=== PATIENT | female | born 1940 | race Caucasian/White ===

== ENCOUNTER 2019-07-06 09:40 | Inpatient (IN) | payer MEDICARE ==
[2019-07-06] VITALS (19 sets, daily range): BP systolic 86–177; BP diastolic 39–76
[~2019-07-06] VITALS: Ht 162.6 cm; Wt 90.7 kg
[~2019-07-06 09:40] MED LIST: ATENOLOL 25 MG25 M1 PG; CARAFATE 1 GM TA1 GM PO; DIAZEPAM 2MG TAB2 MG PO; ESTRADIOL; HYDROCODONE-APA1 TA1 PO; MEDROLDOSEPACK PO; PERCOCET 5-3251 EACH PO; PROMETHAZINE/C118 ML PO; TRICOR; TRICOR145 MG PO; ZOFRAN ODT4 MG PO
[2019-07-06 10:33] LABS: BE 3.2 mmol/L (-2 to +3); PCO2 48.4 mmHg (35.0-45.0); pH 7.388 (7.340-7.450)
[2019-07-06 10:39] LABS: PO2 31.2 mmHg (75.0-100.0)
[2019-07-06 11:15] LABS: CALCIUM 9.2 mg/dL (8.5-10.1); POTASSIUM 5.5 mmol/L (3.5-5.1)
[2019-07-06 11:23] LABS: ALBUMIN 3.1 g/dL (3.4-5.0); TOTAL BILIRUBIN 0.5 mg/dL (<0.1-1.0); TOTAL PROTEIN 6.1 g/dL (6.4-8.2)
[2019-07-06 12:00] LABS: MCH 31.7 pg (26.0-34.0); MCHC 32.8 g/dL (28.0-37.0); MCV 96.7 fL (80.0-100.0); MPV 7.4 fl. (7.2-11.1); NUCLEATED RBCS 1 /100WBC; PLATELET COUNT* 321 thou/uL (150-400); RBC 1.84 mil/uL (4.20-5.00); RDW-CV 17.2 % (10.5-14.5); WBC 7.2 thou/uL (4.0-11.0)
[2019-07-06 12:06] LABS: HEMATOCRIT 17.8 % (37.0-47.0); HEMOGLOBIN 5.8 gm/dL (12.0-15.0)
[2019-07-06 12:13] LABS: INR 1.2; PROTIME 12.1 Seconds (9.20-11.50)
[2019-07-06 12:15] LABS: URINE BILIRUBIN NEGATIVE (Negative); URINE BLOOD NEGATIVE (Negative); URINE CLARITY CLEAR; URINE COLOR YELLOW; URINE GLUCOSE-RANDOM NEGATIVE (Negative); URINE KETONES NEGATIVE (Negative); URINE LEUKOCYTES-REFLEX TRACE (Negative); URINE NITRITE-REFLEX NEGATIVE (Negative); URINE PROTEIN NEGATIVE (Negative); URINE SPECIFIC GRAVITY 1.015 (1.005-1.030); URINE UROBILINOGEN 0.2 E.U./dl (0.2-1.0)
[2019-07-06 12:32] LABS: CASTS None Seen /LPF (None Seen); CRYSTALS None Seen /LPF (None Seen); MUCUS 0-3 Light strn/LPF (None Seen); SQUAMOUS 0-3 Few /LPF (0-3); URINE RBC 0-2 Rare /HPF (0-2); URINE WBC-REFLEX 6-15 Few /HPF (0-5)
[2019-07-06 12:49] LABS: ABSOLUTE LYMPHOCYTES 0.8 thou/uL (0.8-5.3); ABSOLUTE MONOCYTES 0.4 thou/uL (0.0-1.2); PLATELET ESTIMATE ADEQUATE; POLYCHROMASIA 1+
[2019-07-06 12:50] LABS: ANISOCYTOSIS 1+; HYPOCHROMASIA 1+; POIKILOCYTOSIS 1+
--- NOTE | 2019-07-06 16:23 | EKG ---
[place] [address] ELECTROCARDIOGRAM REPORT Name: ROLANDMG AKIL Room: [address] ADM IN M.R.#: [id number] Admission: 07/06/19 Attend Phys: Valentin Roberts, Discharge: Date of : 42 Date of Service: 07/06/19 1021 Report #: [id number] THIS REPORT FOR: //name// [facility] ED Test Date: 2019-07-06 Test Time: 10:21:32 Pat Name: MG WATKINS Department: Room: [facility] Gender: F Tree Killer: CASPER : 1940 Requested By: Les Maki Order Number: [id number] MD: Jose Cardoza Measurements Intervals [place] Rate: 93 P: WA: QRS: 45 QRSD: 84 T: 134 QT: 345 QTc: 430 Interpretive Statements sinus rhythm Nonspecific T abnormalities, lateral leads Compared to ECG 03/05/2008 02:56:53 T-wave abnormality now present Electronically Signed On 07-06-2019 16:21:59 CDT by Jose Cardoza [email or web address] <ELECTRONICALLY SIGNED> By: Jose Cardoza MD, FAC 07/06/19 1621 1021 1021 Jose Cardoza MD, [facility] /EPI
[2019-07-06 19:05] LABS: POTASSIUM 4.9 mmol/L (3.5-5.1)
[2019-07-06 20:41] LABS: HEMOGLOBIN 5.3 gm/dL (12.0-15.0)
[2019-07-06 20:42] LABS: HEMATOCRIT 16.2 % (37.0-47.0)
[2019-07-07] VITALS (191 sets, daily range): BP systolic 108–195; BP diastolic 33–150
[2019-07-07 01:17] LABS: HEMATOCRIT 20.1 % (37.0-47.0)
[2019-07-07 01:25] LABS: HEMOGLOBIN 6.6 gm/dL (12.0-15.0)
--- NOTE | 2019-07-07 04:16 | NUR ---
ASSUMED CARE AT 1910H, ON VENT AT 50% WITH SEDATION OF PROPOFOL AND PRECEDEX. SEDATION TRITARATED, PT WAS OBEYING COMMAND WITH EYE OPENING BUT THEN SHE'S FIGHTING THE VENT. SEDATION INCREASED. GI DOCTOR CALLED EARLY THE SHIFT AND INFORM ABOUT PT'S STATUS. HE WILL SEE PT HARRIS. 2ND BLOOD GIVEN BUT HGB STILL 6.6. TO RPT LAB THIS MORNING. WITH GREEN TO LIGHT BROWN NGT OUTPUT. NO STOOL IN MY SHIFT AND ABDOMEN NOT DISTENDED NOR CHANGE IN SIZE. WITH BRUISING AT THE MIDLINE SITE WITH SLIGHT FIRM SWELLING AND LINE REFRAINED FROM USING. WHEN PT WAS AWAKE, NO WEAKNESS NOTED ON ALL EXTRIMITIES. CONTINUE MONITORING AND TOWARD GOALS.
[2019-07-07 05:24] LABS: ABSOLUTE EOSINOPHILS 0.1 thou/uL (0.0-0.7); ABSOLUTE MONOCYTES 0.5 thou/uL (0.0-1.2); ABSOLUTE NEUTROPHILS 4.6 thou/uL (1.6-8.1); BASOPHILS 0.7 %; EOSINOPHILS 0.9 %; HEMATOCRIT 20.7 % (37.0-47.0); LYMPHOCYTES 16.2 %; MCH 31.5 pg (26.0-34.0); MCHC 32.6 g/dL (28.0-37.0); MCV 96.6 fL (80.0-100.0); MONOCYTES 8.4 %; MPV 7.2 fl. (7.2-11.1); NUCLEATED RBCS 1 /100WBC; PLATELET COUNT* 271 thou/uL (150-400); POLYS 73.8 %; RBC 2.14 mil/uL (4.20-5.00); RDW-CV 16.9 % (10.5-14.5); WBC 6.2 thou/uL (4.0-11.0)
[2019-07-07 05:26] LABS: HEMOGLOBIN 6.7 gm/dL (12.0-15.0)
[2019-07-07 05:52] LABS: CALCIUM 8.2 mg/dL (8.5-10.1); CREATININE 1.7 mg/dL (0.6-1.3); POTASSIUM 4.2 mmol/L (3.5-5.1)
[2019-07-07 10:48] LABS: BE 1.5 mmol/L (-2 to +3); PO2 83.7 mmHg (75.0-100.0); pH 7.341 (7.340-7.450)
[2019-07-07 10:50] LABS: PCO2 52.6 mmHg (35.0-45.0)
[2019-07-07 14:04] LABS: HEMATOCRIT 24.1 % (37.0-47.0)
--- NOTE | 2019-07-07 16:29 | NUR ---
ICU rounds: GI following. Pt have an EGD done in room. Repeat head CT, chest/abd xray to be completed. Central line in place. Has riley. Given 3 units of blood since yesterday. Intubated and sedated. CM spoke with Pt's via phone. Pt has been in [place] 2 times since the beginning of the year. Pt has gotten weaker over the past few weeks. Pt independent with ADLs. On 2.5L o2, provided through [employer]. Pt uses a walker for community distances. Pt is current with [facility] [phone]. No hx of SNF. Following for dc needs.
[2019-07-07 17:18] LABS: BE 2.1 mmol/L (-2 to +3); PCO2 41.4 mmHg (35.0-45.0); PO2 71.8 mmHg (75.0-100.0); pH 7.427 (7.340-7.450)
[2019-07-08] VITALS (73 sets, daily range): BP systolic 94–184; BP diastolic 34–89
[2019-07-08 04:52] LABS: ABSOLUTE EOSINOPHILS 0.1 thou/uL (0.0-0.7); ABSOLUTE LYMPHOCYTES 0.9 thou/uL (0.8-5.3); ABSOLUTE MONOCYTES 0.6 thou/uL (0.0-1.2); ABSOLUTE NEUTROPHILS 5.7 thou/uL (1.6-8.1); BASOPHILS 0.4 %; EOSINOPHILS 0.8 %; HEMATOCRIT 23.6 % (37.0-47.0); HEMOGLOBIN 7.9 gm/dL (12.0-15.0); LYMPHOCYTES 12.6 %; MCH 31.4 pg (26.0-34.0); MCHC 33.6 g/dL (28.0-37.0); MCV 93.5 fL (80.0-100.0); MONOCYTES 8.8 %; MPV 6.7 fl. (7.2-11.1); NUCLEATED RBCS 0 /100WBC; PLATELET COUNT* 272 thou/uL (150-400); POLYS 77.4 %; RBC 2.52 mil/uL (4.20-5.00); RDW-CV 17.2 % (10.5-14.5); WBC 7.3 thou/uL (4.0-11.0)
--- NOTE | 2019-07-08 05:03 | NUR ---
ASSUMED CARE AT 1900H, ON VENT AT 40% AND TOLERATED. STILL ON PROPOFOL AND PRECEDEX DRIP, TITATED. BOWEL PREP DONE STILL NOT YET CLEAR. STOOL BECAME MORE DARKER FROM DARK GREEN TO BLACK. PT SHOOK HIS HEAD WHEN ASKED IF HE HAD ABDOMINAL PAIN. HEMATOLOGY CAME LAST NIGNT AND ORDER MORNING LABS. CONTINUE MONITORING AND TOWARD GOALS.
[2019-07-08 05:09] LABS: CREATININE 1.4 mg/dL (0.6-1.3); POTASSIUM 3.7 mmol/L (3.5-5.1)
[2019-07-08 09:47] LABS: BE 0 mmol/L (-2 to +3); PCO2 42.5 mmHg (35.0-45.0); PO2 74.1 mmHg (75.0-100.0); pH 7.389 (7.340-7.450)
--- NOTE | 2019-07-08 11:58 | NUR ---
ICU rounds: Pt remains on vent. Colonoscopy being completed today.
[2019-07-08 15:29] LABS: BE 2.7 mmol/L (-2 to +3); PCO2 VENOUS 46.6 mmHg (41.0-51.0); PO2 VENOUS 35.5 mmHg (35.0-45.0)
--- NOTE | 2019-07-08 17:21 | CON ---
[address] [address] CONSULTATION Name: MG WATKINS Room: [address] IN M.R.#: [id number] Admission: 07/06/19 Attend Phys: Valentin Roberts MD Discharge: Date of : 42 Report #: [id number] THIS REPORT FOR: //name// cc: LM KIRK NP, RUTENDO NP ~ THIS REPORT FOR: //name// CC: Valentin Kirk DATE OF SERVICE: 07/07/2019 HEMATOLOGY CONSULT NOTE HISTORY OF PRESENT ILLNESS: The patient is being seen in consultation at the request of Dr. Juan for evaluation of anemia of unknown cause. History is taken exclusively from records in [facility], as the patient is intubated and sedated with propofol and no other family members are available. I reviewed briefly the patient's situation with the nurse in the ICU today. The patient was admitted to [facility] on 07/06/2019 after emergency squad brought her here from home where her had found her in the middle of the night unresponsive. She reportedly had been showing signs of progressive fatigue and shortness of breath with a dry cough for 1 week. She has underlying COPD and he reportedly gave her a breathing treatment at night, but later in the railway yard assistant hours he found her unresponsive and the squad was called, bring her in to [facility]. The patient has chronic hypoxia and uses 4 liters per minute nasal cannula. PAST MEDICAL HISTORY: She also has a past history of atrial fibrillation, hypertension, chronic kidney disease stage 3, dyslipidemia, and degenerative joint disease. According to records that are in [facility] [place], she also has a past history of esophageal reflux disease and small-bowel obstruction as well as borderline ascending aortic aneurysm. In the past, she had right upper lobectomy and she had colon cancer. It is also possible, past history of colon surgery because of bowel perforation that resulted in colostomy, then later reversal in 1972. She may also have had appendectomy in the distant past. SOCIAL HISTORY: At [place] is that she was a former smoker, but quit in 1998. She reportedly does not drink any alcohol now. REVIEW OF SYSTEMS: Unobtainable. PHYSICAL EXAMINATION: Reveals an obese elderly lady lying supine in the Intensive Care Unit bed 4. She is intubated, has an NG tube in place. [place] [address] CONSULTATION Name: MG WATKINS Room: [address] IN [facility]#: [id number] Admission: 07/06/19 Attend Phys: Valentin Roberts MD Discharge: Date of : 42 Report #: [id number] sedated with propofol and her eyes are closed. When her lids were gently retracted, they were mid position at 3 mm and there was no scleral icterus. She had no lymphadenopathy in any site in the cervical, clavicular, axillary or inguinal regions. There was no obvious thyromegaly. Her breasts are not examined. Cardiac rate and rhythm are normal without murmur or despite the past history of atrial fibrillation. Her abdomen is obese, but there is no guarding, rigidity, unusual distention, she had no detectable hepatosplenomegaly. Bulging flanks are caput medusae. Lower extremities reveal cool feet without cyanosis. She did not have sustained clonus on testing. There was minimal pitting edema and lower extremity purpura. MEDICAL DATA: From [facility] [place], the most recent CBC prior to admission here at [facility] yesterday was from 06/16/2019. Her hemoglobin then was 9.5 with hematocrit 31.9%, MCV 102.9, RDW 15.2 (11.9 and 15.1), with a white blood cell count of 5800, the differential was normal with 67% neutrophils, 22% lymphocytes, 6% monocytes, 1% eosinophils and no basophils. Platelet count is 251,000. From admission to [facility], hemoglobin was 5.8. I checked with the hematology lab and the peripheral blood smear was not made from that CBC tube. Her hemoglobin was 17.8, hematocrit 96.7, RDW 17.2, platelet count 321,000, and white blood cell count 7200. Three units of packed red blood cells have been given so far, two of them on the day of admission. On the day of admission, her creatinine was 2.0 with a BUN of 28, AST 189, lipase 110, total bilirubin 0.5, calcium 9.2, alkaline phosphatase 64, ALT 151, albumin 3.1, lactic acid 0.9, NT- proBNP 1936, and a ferritin today was within the normal range at 285. I personally reviewed the peripheral blood smear that was prepared from the 2nd CBC (day of admission, but after the first transfusion of blood. There was significant artifact in terms of the spreading. Red blood cells revealed moderate anisocytosis and mild poikilocytosis. There was no rouleaux formation or red cell agglutination. She had a very small population of spherocytes. She may have had biclonal population because of recent transfusions, but there was also a population of macrocytic cells and a very small percentage of definitely hypochromic cells. She had no tear drop cells, target cells or mature echinocytes or acanthocytes, I did not see any nucleated RBCs. White blood cells revealed minor population of hypogranular segmented neutrophils, but there were no other suggestions of dysplasia. She had no left shift and there were no toxic changes. I saw rare eosinophils, no basophils, only rare monocyte, and lymphocytes appeared to be normal. Review of the records in [facility] revealed that ever since 05/09/2019, she had had erythrocyte macrocytosis with MCVs initially 103.5 on 05/09/2019, reached to peak of 105 on 05/11/2019, then gradually decreased to minimum of 100.3 on 06/01/2019. Previous studies at [facility] do not show measurement of vitamin B12 or folic acid nor reticulocytes. [place] [address] CONSULTATION Name: RAUL WATKINSKELLEY BARNARD Room: [address] IN [facility]#: [id number] Admission: 07/06/19 Attend Phys: Valentin Roberts MD Discharge: Date of : 42 Report #: [id number] abdomen on 05/28/2019 revealed a normal liver and no splenomegaly. IMPRESSION AND PLAN: The patient has had striking drop in her hemoglobin over a short period of time. Her mentioned in history that the patient had been passing some bright red blood per rectum. She must have bled quite a bit and this may have been facilitated by Nneka. I note that Dr. Juan workup so far has been negative with regard to the EGD and colonoscopy is planned for tomorrow. There may or may not be a structural lesion that can be found. Angiodysplasia or arteriovenous malformations are possibilities. The patient could have dysplasia in addition, but it is difficult to be sure. There were no characteristic findings in my review of the peripheral blood smear. She has had an increase in the RDW on recent testing occasions, but no significant leukopenia or thrombocytopenia. I do not think a bone marrow examination is indicated, certainly not at the present time. She should be supported with red blood cell transfusions to stabilize her blood volume while she is undergoing investigations. Serum levels of the vitamins may be distorted some because of the plasma given with transfusions on admission, but this is minor consideration. Renal dysfunction also plays a role in her anemia, but that is not typically macrocytic. Therefore, she may have a multifactorial anemia. We would recommend transfusions to keep the hemoglobin approximately 9 since she has had heme-positive stools. <ELECTRONICALLY SIGNED> By: Les Yee MD 07/08/19 1721 [id number] [id number] Yee MD /nt
[2019-07-08 18:46] LABS: BE 1.2 mmol/L (-2 to +3); PCO2 VENOUS 47.4 mmHg (41.0-51.0); PO2 VENOUS 46.6 mmHg (35.0-45.0)
--- NOTE | 2019-07-08 20:07 | NUR ---
ASSUMED CARE OF PT AT 0700 PT HAD COLONSCOPY AT 1030 WENT WELL TOLERATED WELL NO ABNORMAL FINDINGS NOTED PT STARTED WEANING TRIAL AT 1445 TRIALED FOR 45MINS PLUS LAB RESULTS EXTUBATED BY RT WITH DR ESPARZA IN ROOM TOLERATED WELL VOICE HOARSE AND RASPY NC 5L SPOUSE NOTIFIED NG REMOVED WELL PT BECOME LABORED BREATHING AROUND 1800 BLOOD INCREASE 180/80S PRN MEDICATION GIVEN BIPAP ON CHANGE TO NONREBREATHER DEXAMETHASONE GIVEN NO IMPROVEMENT REINTUBATED PER DR ESPARZA ETOMIDATE 20MG GIVEN FOR INFORMATION PULLED FROM THE [facility] AWARE PRECEDEX AND PROPOFOL GTT STARTED AGAIN SPOUSE INFORMED
[2019-07-08 23:21] LABS: PCO2 VENOUS 36.2 mmHg (41.0-51.0); PO2 VENOUS 147.5 mmHg (35.0-45.0)
--- NOTE | 2019-07-08 23:35 | NUR ---
RECEIVED REPORT AND ASSUMED CARE OF PATIENT AT 1900. VSS. FULL ASSESSMENT COMPLETED CHARTED. BED LOCKED AND IN LOW POSITION.
[2019-07-09] VITALS (50 sets, daily range): BP systolic 104–189; BP diastolic 37–70
[2019-07-09 05:28] LABS: ABSOLUTE LYMPHOCYTES 0.5 thou/uL (0.8-5.3); ABSOLUTE MONOCYTES 0.2 thou/uL (0.0-1.2); ABSOLUTE NEUTROPHILS 3.8 thou/uL (1.6-8.1); BASOPHILS 0.1 %; HEMATOCRIT 24.5 % (37.0-47.0); HEMOGLOBIN 8.2 gm/dL (12.0-15.0); MCH 31.2 pg (26.0-34.0); MCHC 33.4 g/dL (28.0-37.0); MCV 93.5 fL (80.0-100.0); MONOCYTES 4.8 %; MPV 6.7 fl. (7.2-11.1); NUCLEATED RBCS 0 /100WBC; PLATELET COUNT* 275 thou/uL (150-400); POLYS 83.1 %; RBC 2.62 mil/uL (4.20-5.00); RDW-CV 17.6 % (10.5-14.5); WBC 4.5 thou/uL (4.0-11.0)
[2019-07-09 05:33] LABS: BE 2.2 mmol/L (-2 to +3); PCO2 VENOUS 42.5 mmHg (41.0-51.0); PO2 VENOUS 89.7 mmHg (35.0-45.0)
[2019-07-09 05:49] LABS: CALCIUM 8.1 mg/dL (8.5-10.1); CREATININE 1.4 mg/dL (0.6-1.3)
--- NOTE | 2019-07-09 14:22 | NUR ---
ICU rounds: Pt now Covid-19 pending. Reintubated last night, Pt was in respiratory distress. aware and in agreement with POC.
[2019-07-09 16:07] LABS: GLOBULIN TOTAL 2.5 g/dL (2.2-3.9); M-SPIKE Not Observed g/dL (Not Observed)
--- NOTE | 2019-07-09 18:00 | NUR ---
VENT SUPPORT CONTD, SETITNGS UNCHANGED. PT MILDLY SEDATED WITH PROPOFOL AND PRECEDEX, FOLLOWS COMMANDS. VSS. OG TUBE PLACED, PLACEMENT CONFIRMED WITH XRAY. TUBE FEEDING STARTED WITH JEVITY 1.5, TOLERATING AT 40 MLS/HR. Q2 TURNS FOR SKIN INTEGRITY. DARK BROWN URINE OUTPUT- 400 MLS. NO PLANS ON EXTUBATION TODAY. UPDATED OVER THE PHONE.
--- NOTE | 2019-07-09 21:59 | NUR ---
RECEIVED REPORT AND ASSUMED CARE OF THE PATIENT AT 1900. VSS. FULL ASSESSMENT COMPLETED CHARTED. BED LOCKED AND IN LOW POSITION. CALL LIGHT IN REACH.
[2019-07-10] VITALS (41 sets, daily range): BP systolic 97–192; BP diastolic 35–79
[2019-07-10 04:55] LABS: HEMOGLOBIN 7.7 gm/dL (12.0-15.0); MCH 30.1 pg (26.0-34.0); MCHC 32.1 g/dL (28.0-37.0); MCV 93.7 fL (80.0-100.0); MPV 7.2 fl. (7.2-11.1); NUCLEATED RBCS 0 /100WBC; PLATELET COUNT* 281 thou/uL (150-400); RBC 2.56 mil/uL (4.20-5.00); RDW-CV 16.6 % (10.5-14.5)
[2019-07-10 05:21] LABS: ALBUMIN 2.3 g/dL (3.4-5.0); CALCIUM 7.9 mg/dL (8.5-10.1); CREATININE 1.3 mg/dL (0.6-1.3); POTASSIUM 3.4 mmol/L (3.5-5.1); TOTAL BILIRUBIN 0.4 mg/dL (<0.1-1.0); TOTAL PROTEIN 5.6 g/dL (6.4-8.2)
[2019-07-10 06:43] LABS: ABSOLUTE EOSINOPHILS 0.1 thou/uL (0.0-0.7); ABSOLUTE MONOCYTES 0.3 thou/uL (0.0-1.2); ABSOLUTE NEUTROPHILS 3.7 thou/uL (1.6-8.1); ANISOCYTOSIS 2+; ATYPICAL LYMPHS 2 %; PLATELET ESTIMATE ADEQUATE
[2019-07-10 06:44] LABS: HYPOCHROMASIA 1+; MICROCYTES 2+
[2019-07-10 06:45] LABS: TOXIC GRANULATION 1+
--- NOTE | 2019-07-10 18:35 | NUR ---
PT REMAINS INTUBATED PER ORDERED SETTINGS.SEDATED WITH PRECEDEX AND PROPOFOL PER ICU TITRATION ORDERS.PT IS ABLE TO OPEN EYES AND FOLLOW COMMANDS.VSS.LOW GRADE FEVER THROUGHTOUT SHIFT.PROCESS SERVER IN PLACE WITH NO EVENTS THIS SHIFT.NO APPARENT PAIN.PT RECEIVED DOSE OF LASIX THIS SHIFT WITH ADEQUATE OUTPUT.POTASSIUM REPLACED.TUBE FEEDINGS INFUSING PER ORDERED RATE WITH LOW RESIDUALS-FREE WATER BOLUSES GIVEN.ISOLATION MAINTAINED-COVID CAME BACK NOT DETECTED.PHYSICIAN NOTIFIED OF RESULTS WITH ORDERS RECEIVED TO KEEP PT IN DROPLET PRECAUTIONS.FAMILY NOTIFIED OF RESULTS WELL.HOURLY ROUNDING COMPLETED FOR PT SAFETY.WILL CONTINUE TO MONITOR FOR DURATION OF SHIFT.
[2019-07-11] VITALS (36 sets, daily range): BP systolic 97–179; BP diastolic 39–76
[2019-07-11 04:16] LABS: ABSOLUTE EOSINOPHILS 0.1 thou/uL (0.0-0.7); ABSOLUTE LYMPHOCYTES 0.9 thou/uL (0.8-5.3); ABSOLUTE MONOCYTES 0.4 thou/uL (0.0-1.2); ABSOLUTE NEUTROPHILS 2.9 thou/uL (1.6-8.1); HEMATOCRIT 23.8 % (37.0-47.0); HEMOGLOBIN 7.8 gm/dL (12.0-15.0); LYMPHOCYTES 21.2 %; MCH 30.9 pg (26.0-34.0); MCHC 32.9 g/dL (28.0-37.0); MCV 94.1 fL (80.0-100.0); NUCLEATED RBCS 0 /100WBC; PLATELET COUNT* 264 thou/uL (150-400); POLYS 65.8 %; RBC 2.53 mil/uL (4.20-5.00); RDW-CV 16.8 % (10.5-14.5); WBC 4.4 thou/uL (4.0-11.0)
[2019-07-11 04:39] LABS: ALBUMIN 2.2 g/dL (3.4-5.0); CALCIUM 8.2 mg/dL (8.5-10.1); CREATININE 1.3 mg/dL (0.6-1.3); POTASSIUM 4.2 mmol/L (3.5-5.1); TOTAL BILIRUBIN 0.4 mg/dL (<0.1-1.0); TOTAL PROTEIN 5.8 g/dL (6.4-8.2)
[2019-07-11 11:18] LABS: BE 0.3 mmol/L (-2 to +3); PCO2 VENOUS 48.8 mmHg (41.0-51.0); PO2 VENOUS 37.9 mmHg (35.0-45.0)
--- NOTE | 2019-07-11 17:55 | NUR ---
PT RESPONSIVE AND FOLLOWS COMMANDS, ON MILD SEDATION AND CONT VENT SUPPORT. EXTUBATION CANCELLED TODAY D/T TACHYPNEA AND GIVEN H/O ANXIETY & REINTUBATION THICK ORAL AND ET SECRETIONS PRESENT. THREE EPISODES OF LOOSE BM THIS SHIFT. TOLERATING TUBE FEEDS. Q2 TURNS FOR SKIN INTEGRITY. UPDATED.
[2019-07-12] VITALS (26 sets, daily range): BP systolic 107–187; BP diastolic 36–99
[2019-07-12 04:17] LABS: ABSOLUTE LYMPHOCYTES 0.8 thou/uL (0.8-5.3); ABSOLUTE MONOCYTES 0.5 thou/uL (0.0-1.2); BASOPHILS 0.5 %; EOSINOPHILS 0.7 %; HEMATOCRIT 24.8 % (37.0-47.0); HEMOGLOBIN 8.1 gm/dL (12.0-15.0); LYMPHOCYTES 19.4 %; MCH 30.5 pg (26.0-34.0); MCHC 32.7 g/dL (28.0-37.0); MCV 93.3 fL (80.0-100.0); MONOCYTES 10.5 %; MPV 6.8 fl. (7.2-11.1); NUCLEATED RBCS 0 /100WBC; PLATELET COUNT* 269 thou/uL (150-400); POLYS 68.9 %; RBC 2.66 mil/uL (4.20-5.00); RDW-CV 16.5 % (10.5-14.5); WBC 4.4 thou/uL (4.0-11.0)
[2019-07-12 04:32] LABS: ALBUMIN 2.4 g/dL (3.4-5.0); CALCIUM 8.3 mg/dL (8.5-10.1); CREATININE 1.2 mg/dL (0.6-1.3); POTASSIUM 4.4 mmol/L (3.5-5.1); TOTAL BILIRUBIN 0.5 mg/dL (<0.1-1.0); TOTAL PROTEIN 6.2 g/dL (6.4-8.2)
--- NOTE | 2019-07-12 18:24 | NUR ---
VENT SUPPORT CONTD, SETTINGS UNCHANGED. PT MILDLY SEDATED WITH PROPOFOL AND PRECEDEX. TOLERATING TUBEFEDS. TWO LARGE BM THIS SHIFT. VSS. Q2 TURNS DONE. UPDATED OVER PHONE.
[2019-07-13] VITALS (22 sets, daily range): BP systolic 101–190; BP diastolic 39–85
[2019-07-13 06:14] LABS: ABSOLUTE LYMPHOCYTES 0.5 thou/uL (0.8-5.3); ABSOLUTE MONOCYTES 0.1 thou/uL (0.0-1.2); ABSOLUTE NEUTROPHILS 4.7 thou/uL (1.6-8.1); BASOPHILS 0.5 %; EOSINOPHILS 0.1 %; HEMATOCRIT 27.1 % (37.0-47.0); HEMOGLOBIN 8.7 gm/dL (12.0-15.0); LYMPHOCYTES 9.1 %; MCH 30.1 pg (26.0-34.0); MCHC 32.2 g/dL (28.0-37.0); MCV 93.6 fL (80.0-100.0); MONOCYTES 2.4 %; MPV 7.3 fl. (7.2-11.1); NUCLEATED RBCS 0 /100WBC; PLATELET COUNT* 290 thou/uL (150-400); POLYS 87.9 %; RDW-CV 16.5 % (10.5-14.5); WBC 5.3 thou/uL (4.0-11.0)
[2019-07-13 06:30] LABS: ALBUMIN 2.7 g/dL (3.4-5.0); CALCIUM 8.6 mg/dL (8.5-10.1); CREATININE 1.1 mg/dL (0.6-1.3); TOTAL BILIRUBIN 0.5 mg/dL (<0.1-1.0); TOTAL PROTEIN 6.6 g/dL (6.4-8.2)
--- NOTE | 2019-07-13 18:10 | NUR ---
PT REMAINS INTUBATED PER ORDERED SETTINGS.SEDATED WITH PRECEDEX.CRANIOLOGIST IN PLACE WITH NO CHANGES THIS SHIFT.NO APPARENT PAIN.LOW GRADE FEVER THROUGHOUT SHIFT.LASIX GIVEN THIS SHIFT.TUBE FEEDS INFUSING PER ORDERS WITH LOW RESIDUALS-300 ML FREE WATER BOLUS GIVEN Q4 HR.Q2 HOUR POSITION CHANGES.HOURLY ROUNDING.WILL CONTINUE TO MONITOR FOR DURATION OF SHIFT.
--- NOTE | 2019-07-13 20:42 | NUR ---
0 PURCBIL ARNALDO KNOWWWW HE [facility] NOT[facility] IN BUT SMILEY COULD COME THEEEEEEE WK ANDBRING HAPPY SSSSHE IS A BALLOF FFUR THE ABOVE WAS TYPED BY THE PATIENT. SHE HAS HAD DIFFICULTY COMMUNICATING VIA EZ BOARD AND CAN NOT WRITE CLEARLY. CONFIRMED THAT WHAT SHE SAID WAS: "VITALY ROLAND. TELL HIM I KNOW HE CAN NOT COME IN BUT HE COULD COME TO THE WINDOW AND BRING HAPPY. SHE IS A BALL OF FUR." HAPPY IS PTS DOG. INFORMED PT I WOULD CALL HER TO RELAY THIS MESSAGE.
[2019-07-14] VITALS (14 sets, daily range): BP systolic 130–188; BP diastolic 52–88
[2019-07-14 04:03] LABS: HEMATOCRIT 27.6 % (37.0-47.0); NUCLEATED RBCS 0 /100WBC; RBC 2.95 mil/uL (4.20-5.00)
[2019-07-14 04:32] LABS: CALCIUM 9.4 mg/dL (8.5-10.1); CREATININE 1.2 mg/dL (0.6-1.3); POTASSIUM 4.5 mmol/L (3.5-5.1)
[2019-07-14 04:37] LABS: HEMOGLOBIN 8.9 gm/dL (12.0-15.0); MCH 30.2 pg (26.0-34.0); MCHC 32.3 g/dL (28.0-37.0); MCV 93.5 fL (80.0-100.0); MPV 7.2 fl. (7.2-11.1); PLATELET COUNT* 335 thou/uL (150-400); RDW-CV 16.5 % (10.5-14.5); WBC 6.6 thou/uL (4.0-11.0)
[2019-07-14 04:38] LABS: ALBUMIN 2.7 g/dL (3.4-5.0); CALCIUM 9.3 mg/dL (8.5-10.1); CREATININE 1.2 mg/dL (0.6-1.3); POTASSIUM 4.5 mmol/L (3.5-5.1); TOTAL BILIRUBIN 0.4 mg/dL (<0.1-1.0); TOTAL PROTEIN 6.6 g/dL (6.4-8.2)
[2019-07-14 06:05] LABS: BE 4.7 mmol/L (-2 to +3); PCO2 48.5 mmHg (35.0-45.0); PO2 66.5 mmHg (75.0-100.0); pH 7.409 (7.340-7.450)
[2019-07-14 06:05] LABS: ABSOLUTE LYMPHOCYTES 0.6 thou/uL (0.8-5.3); ABSOLUTE MONOCYTES 0.2 thou/uL (0.0-1.2); ABSOLUTE NEUTROPHILS 5.8 thou/uL (1.6-8.1); ANISOCYTOSIS 1+; PLATELET ESTIMATE ADEQUATE; POIKILOCYTOSIS 1+
--- NOTE | 2019-07-14 10:59 | NUR ---
FLOYD called and spoke with pt nurse for today, Ila. Pt remains on vent, riley, RIJ, int. abx. Remains on droplet precautions, MRSA. CM remains available to assist with safe dc planning.
--- NOTE | 2019-07-14 19:02 | NUR ---
THIS ASSOCIATE PROFESSOR OF COMMUNICATION ASSUMED CARE OF PT AT 0700 PT PROGRESSED TOWARDS GOALS AND WAS TRIALED AND EXTUBATED AT [address] PL[address] ON HIGH FLOW NC TOLERATING WELL PT IS DROOLING STATES SHE IS ABLE TO SWALLOW JUST HAS ALOT OF SCRETION NPO UNTIL SPEECH EVAL TOMORROW PER DR GUPTA PRECEDX RUNNING AT 1.4 PT WAS ANXIOUS TEARFUL INCREASED HEART AND RESP PER DR GUPTA RESUME PRECEDEX DONT GIVE ATIVAN UNLESS NEEDED ONETIME DOSE OF RACEMIC EPI AT 1900 MONITOR UNTIL THE MORNING
[2019-07-15] VITALS (24 sets, daily range): BP systolic 123–195; BP diastolic 41–123
[2019-07-15 05:15] LABS: ABSOLUTE LYMPHOCYTES 0.5 thou/uL (0.8-5.3); ABSOLUTE MONOCYTES 0.2 thou/uL (0.0-1.2); ABSOLUTE NEUTROPHILS 4.4 thou/uL (1.6-8.1); BASOPHILS 0.6 %; HEMATOCRIT 27.5 % (37.0-47.0); LYMPHOCYTES 10.4 %; MCH 30.3 pg (26.0-34.0); MCHC 32.8 g/dL (28.0-37.0); MCV 92.5 fL (80.0-100.0); NUCLEATED RBCS 0 /100WBC; PLATELET COUNT* 319 thou/uL (150-400); RBC 2.98 mil/uL (4.20-5.00); RDW-CV 16.4 % (10.5-14.5); WBC 5.1 thou/uL (4.0-11.0)
[2019-07-15 05:32] LABS: ALBUMIN 2.8 g/dL (3.4-5.0); CREATININE 1.3 mg/dL (0.6-1.3); POTASSIUM 4.6 mmol/L (3.5-5.1); TOTAL BILIRUBIN 0.6 mg/dL (<0.1-1.0); TOTAL PROTEIN 6.6 g/dL (6.4-8.2)
[2019-07-15 05:33] LABS: PREALBUMIN > 50.0 mg/dL (18.0-35.7)
--- NOTE | 2019-07-15 09:32 | NUR ---
ICU rounds: Pt off vent as of yesterday and doing wonderful. Wears 4L of oxygen at home. PT/OT evals to be ordered, to determine what level of care Pt will need at dc. Following.
--- NOTE | 2019-07-15 19:33 | NUR ---
this travel writer assumed care of pt at 0700 pt progressed toward goal precedex titrated 0.9mcg tolerating well less anxious speech eval complete today ice chips only pt is only swallowing 75% of the time with absent swallow and unable able to identify food in mouth with re eval tomorrow pt has thrush present started on fluconazole daily to help afebrile has been coming to window with dog happy and pt states it makes her day family has been updated
[2019-07-16] VITALS (39 sets, daily range): BP systolic 135–198; BP diastolic 42–105
[2019-07-16 06:20] LABS: ABSOLUTE LYMPHOCYTES 0.4 thou/uL (0.8-5.3); ABSOLUTE MONOCYTES 0.1 thou/uL (0.0-1.2); ABSOLUTE NEUTROPHILS 4.9 thou/uL (1.6-8.1); BASOPHILS 0.1 %; HEMATOCRIT 27.9 % (37.0-47.0); HEMOGLOBIN 9.1 gm/dL (12.0-15.0); LYMPHOCYTES 7.2 %; MCH 30.3 pg (26.0-34.0); MCHC 32.5 g/dL (28.0-37.0); MCV 93.2 fL (80.0-100.0); MONOCYTES 2.5 %; MPV 7.3 fl. (7.2-11.1); NUCLEATED RBCS 0 /100WBC; PLATELET COUNT* 324 thou/uL (150-400); POLYS 90.2 %; RDW-CV 16.4 % (10.5-14.5); WBC 5.4 thou/uL (4.0-11.0)
[2019-07-16 06:41] LABS: ALBUMIN 2.8 g/dL (3.4-5.0); CALCIUM 9.3 mg/dL (8.5-10.1); CREATININE 1.3 mg/dL (0.6-1.3); POTASSIUM 4.3 mmol/L (3.5-5.1); TOTAL BILIRUBIN 0.7 mg/dL (<0.1-1.0); TOTAL PROTEIN 6.4 g/dL (6.4-8.2)
--- NOTE | 2019-07-16 13:11 | EKG ---
[place] [address] ELECTROCARDIOGRAM REPORT Name: RAUL WATKINSLYN AKIL Room: [address] ADM IN M.R.#: [id number] Admission: 07/06/19 Attend Phys: Valentin Roberts, Discharge: Date of : 42 Date of Service: 07/16/19 1301 Report #: [id number] THIS REPORT FOR: //name// [facility] Test Date: 2019-07-16 Test Time: 13:01:11 Pat Name: MG WATKINS Department: Room: [address] Gender: F Disability Rater: : 1940 Requested By: Valentin Roberts Order Number: [id number] Reading MD: Jose Cardoza Measurements Intervals [place] Rate: 121 P: 49 SC: 139 QRS: 39 QRSD: 69 T: 219 QT: 264 QTc: 375 Interpretive Statements Sinus tachycardia with frequent and consecutive pac's Nonspecific repol abnormality, diffuse leads Compared to ECG 07/06/2019 10:21:32 Sinus rhythm no longer present Electronically Signed On 07-16-2019 13:09:52 CDT by Jose Cardoza [email or web address] <ELECTRONICALLY SIGNED> By: Jose Cardoza MD, [facility] 07/16/19 1309 130 130 Jose Cardoza MD, [facility] /EPI
--- NOTE | 2019-07-16 14:45 | NUR ---
REHAB CONSULT INITIATED. PT.REMAINS IN DROPLET PRECAUTIONS. DISCUSSED WITH MELODY/MELLY. SHE SAID THEY WOULD BE UNABLE TO TAKE PT.TO REHAB UNIT IF ON DROPLET PRECAUTIONS. DISCUSSED WITH . HE WOULD LIKE PULMONARY TO MAKE THIS DETERMINATION. LIZETH SÁNCHEZ ASKED SWIMMING COACH OR INSTRUCTOR, . SAID SHE IS NOT READY TO DISCONTINUE DROPLET PRECAUTIONS AT THIS TIME.
--- NOTE | 2019-07-16 18:46 | NUR ---
PATIENT SOMEWHAT PROGRESSING TOWARDS GOALS. HR REMAINS OVER 140 AND IS ALL OVER THE PLACE. DR GUPTA ORDERED CARDIZEM GTT AFTER 2 FAILED ATTEMPTS OF METOPROLOL 5MG IV PUSH. PO ATENOLOL REORDERED FOR THIS EVENING. PASSED SPEECH EVALUATION, THIN LIQUIDS AND CHOPPED FOOD. PATIENT COMPLAINTS OF BEING HOT, HIGHEST TEMP OF 99.3 AT 1730. BATH GIVEN TO HELP COOL, TEMP DECREASED IN ROOM, UNABLE TO FIND FAN AT THIS TIME. REFUSING TO EAT BECAUSE SHE IS HOT. REMAINS ON 4 LITERS NASAL CANULA, RESTING IN BED. NO PAIN AT THIS TIME. SLIGHT NAUSEA, BUCKET IN REACH. BED IN LOWEST POSITION, CALL LIGHT IN REACH, TRANSCRIPTION TYPIST IN PLACE.
[2019-07-17] VITALS (22 sets, daily range): BP systolic 162–184; BP diastolic 62–128
[2019-07-17 04:34] LABS: ABSOLUTE LYMPHOCYTES 0.5 thou/uL (0.8-5.3); ABSOLUTE MONOCYTES 0.3 thou/uL (0.0-1.2); ABSOLUTE NEUTROPHILS 8.5 thou/uL (1.6-8.1); BASOPHILS 0.3 %; HEMATOCRIT 31.8 % (37.0-47.0); HEMOGLOBIN 10.4 gm/dL (12.0-15.0); LYMPHOCYTES 5.9 %; MCH 30.4 pg (26.0-34.0); MCHC 32.8 g/dL (28.0-37.0); MCV 92.6 fL (80.0-100.0); MONOCYTES 2.7 %; MPV 6.7 fl. (7.2-11.1); NUCLEATED RBCS 0 /100WBC; POLYS 91.1 %; RBC 3.43 mil/uL (4.20-5.00); RDW-CV 17.2 % (10.5-14.5); WBC 9.3 thou/uL (4.0-11.0)
[2019-07-17 04:38] LABS: PLATELET COUNT* 502 thou/uL (150-400)
[2019-07-17 04:46] LABS: CALCIUM 9.9 mg/dL (8.5-10.1); CREATININE 1.2 mg/dL (0.6-1.3); POTASSIUM 3.9 mmol/L (3.5-5.1)
--- NOTE | 2019-07-17 10:11 | NUR ---
PT IS A/O X4 BUT FORGETFUL AND CONFUSED ACTING AT TIMES.SUPERVISOR REWORK IN PLACE.PT REMAINS ON 4L O2 NC WHICH IS HOME O2 REQUIREMENTS.PT DOWNGRADED TO TELEMETRY STATUS AND WILL TRANSFER TO ROOM 219.NO C/O PAIN.PT WORKED WITH OT.HOURLY ROUNDING.CALL LIGHT AND FALL PRECAUTIONS IN PLACE.WILL CONTINUE TO MONITOR.WILL CALL REPORT TO FLOOR NURSE.
--- NOTE | 2019-07-17 12:23 | NUR ---
PT TRANSFERRED TO ROOM 219 FROM ICU AT 1145. CARDIZEM IV STOPPED. PO CARDIZEM AND PO SOTALOL TO BEGIN AFTER AN HOUR. PT IS RESTING AT THIS TIME WITH CALL LIGHT IN REACH. VSS. SEBLETM
--- NOTE | 2019-07-17 14:14 | CON ---
[address] [address] CONSULTATION Name: ROLANDMG AKIL Room: [address] IN M.R.#: [id number] Admission: 07/06/19 Attend Phys: Valentin Roberts MD Discharge: Date of : 42 Report #: [id number] THIS REPORT FOR: //name// cc: LM KIRK NP, RUTENDO NP ~ THIS REPORT FOR: //name// CC: Valentin KIRK DATE OF SERVICE: 07/17/2019 CARDIOLOGY CONSULTATION HISTORY OF PRESENT ILLNESS: The patient is a 79-year-old white female who I was asked to see in the hospital today after she had an episode of atrial fibrillation. The patient apparently has a history of paroxysmal atrial fibrillation in the past. She is followed by Dr. Joyce, a safety officer at [facility]. She apparently has never been cardioverted. She has been chronically anticoagulated with Eliquis. She also takes atenolol. She does note that in the past, Dr. Joyce had talked her about ablation. She is not very active at this time because of her age and obesity. She ambulates with a walker. Apparently, she was brought to [place] 10 days ago in 07/05 when her found her and could not wake her up. She apparently was struggling to breathe. She had been weak, but had no fever or cough. She does have chronic dyspnea on exertion. She does have oxygen at home. Ambulance was called and she was brought here to [place]. Because of her decreased consciousness, she was intubated on arrival. She was intubated for several days and eventually extubated. However, after being extubated, she required reintubation a day later for shortness of breath. Yesterday, she was again extubated after several days. She then went into rapid atrial fibrillation, was placed on IV diltiazem. She converted to sinus rhythm. Cardiology consultation was requested. She denies a history of chest pain, myocardial infarction, palpitations, previous syncope or peripheral edema. PAST MEDICAL HISTORY: She has had part of her lung removed in the past for benign disease. She has had a hysterectomy. She had laparotomy for ruptured colon in the past. She had a previous colostomy, which is now closed. She has a history of hypertension, hyperlipidemia, and paroxysmal atrial fibrillation. MEDICATIONS: At home consists of atenolol, Eliquis, fenofibrate. ALLERGIES: She has no known drug allergies. FAMILY HISTORY: [place] [address] CONSULTATION Name: MG WATKINS Room: [address] IN M.R.#: [id number] Admission: 07/06/19 Attend Phys: Valentin Roberts MD Discharge: Date of : 42 Report #: [id number] SOCIAL HISTORY: She is . She and her live here in [place]. She quit smoking long time ago. No alcohol abuse. REVIEW OF SYSTEMS: She is overweight. No history of stroke. She does have a nebulizer at home for COPD. No history of liver disease. She has chronic kidney disease. No cancer. No psychiatric illness. No chronic skin condition. PHYSICAL EXAMINATION: GENERAL: Revealed an obese elderly female lying in bed. She appeared in no distress. VITAL SIGNS: She had a blood pressure of 140/80, pulse 80, she is afebrile. HEENT: She was anicteric. Conjunctivae pink. Mucous membranes moist. NECK: Veins difficult to assess due to obesity. CHEST: Clear to auscultation. CARDIOVASCULAR: Regular rate and rhythm. Occasional prematurity. ABDOMEN: Obese. EXTREMITIES: Had no edema. SKIN: Cool and dry. NEUROLOGIC: Nonfocal. RADIOLOGICAL DATA: Her ECG currently shows a sinus rhythm, occasional PACs. Yesterday, the patient was in atrial fibrillation with rapid ventricular response rate. Her ECG on admission showed a sinus rhythm with nonspecific ST and T-wave change. The patient had a chest x-ray 2 days ago that showed cardiomegaly, mild vascular congestion. LABORATORY DATA: Sodium 148, potassium 3.9, creatinine 1.2, however, was 2.0 on admission. Her SGOT 71, SGPT 186, albumin 2.8. Troponin 0.07. BNP 4319. White blood cell count 9.3, hemoglobin decreased to 7.8, it is now 10.4. IMPRESSION AND RECOMMENDATIONS: 1. Paroxysmal atrial fibrillation. At this time, I would recommend discontinuing atenolol and start sotalol. I would hold off anticoagulation at this time because of recent gastrointestinal bleeding. 2. Hypertension. The patient has been on a beta bipin. 3. Obesity. 4. Chronic obstructive pulmonary disease. The patient recently extubated. 5. Recent gastrointestinal bleed. Colonoscopy showed no obvious bleeding. 6. Anemia. 7. Chronic kidney disease. <ELECTRONICALLY SIGNED> By: Jose Cardoza MD, [facility] 07/17/19 1414 1130 [id number] Cardoza MD, FACC /nt
--- NOTE | 2019-07-17 15:33 | 2DMMODE ---
[place] [address] 2 D/M-MODE ECHOCARDIOGRAM Name: ROLANDMG AKIL Room: [address] IN .R.#: [id number] Admission: 07/06/19 Attend Phys: Valentin Roberts, Discharge: Date of : 42 Date of Service: 07/17/19 1532 Report #: [id number] THIS REPORT FOR: cc: LM KIRK NP, RUTENDO NP Blick, David R. MD [facility] ~ APPROVED REPORT Study performed: 07/17/2019 13:19:41 EXAM: Comprehensive 2D, Doppler, and color-flow Echocardiogram Patient Location: In-Patient Room #: 219 Status: routine BSA: 1.93 HR: 60 bpm BP: 203/81 mmHg Rhythm: NSR Other Information Study Quality: Good Indications Dyspnea 2D Dimensions IVSd: 14.58 (7-11mm) LVOT Diam: 19.67 (18-24mm) LVDd: 45.18 mm PWd: 9.07 (7-11mm) Ascending Ao: 44.87 (22-36mm) LVDs: 19.89 (25-40mm) Aortic Root: 36.80 mm Volumes Left Atrial Volume (Systole) LA ESV Index: 27.70 mL/m2 Aortic Valve AoV Peak Nathaniel.: 1.99 m/s AO Peak Gr.: 15.78 mmHg LVOT Max P.06 mmHg AO Mean Gr.: 9.43 mmHg LVOT Mean P.51 mmHg LVOT Max V: 1.12 m/s AO V2 VTI: 47.37 cm LVOT Mean V: 0.73 m/s COLETTE (VTI): 1.78 cm2 LVOT V1 VTI: 27.82 [place] [address] 2 D/M-MODE ECHOCARDIOGRAM Name: MG WATKINS Room: [address] IN [facility]#: [id number] Admission: 07/06/19 Attend Phys: Valentin Roberts, Discharge: Date of : 42 Date of Service: 07/17/19 1532 Report #: [id number] Mitral Valve E/A Ratio: 1.41 MV Decel. Time: 207.19 ms MV E Max Nathaniel.: 1.29 m/s MV PHT: 60.09 ms MVA (PHT): 3.66 cm2 TDI E/Lateral E': 10.75 E/Medial E': 14.33 Medial E' Nathaniel.: 0.09 m/s Lateral E' Nathaniel.: 0.12 m/s Pulmonary Valve PV Peak Nathaniel.: 1.02 m/s PV Peak Gr.: 4.17 mmHg Tricuspid Valve RAP Estimate: 5.00 mmHg TR Peak Gr.: 45.77 mmHg RVSP: 50.00 mmHg PA Pressure: 50.00 mmHg Left Ventricle The left ventricle is normal size. There is normal LV segmental wall motion. There is normal left ventricular wall thickness. Left ventricular systolic function is normal. The left ventricular ejection fraction is within the normal range. LVEF is 65-70%. The left ventricular diastolic function is normal. Right Ventricle The right ventricle is normal size. The right ventricular systolic function is normal. Atria The left atrium size is normal. The right atrium size is normal. Aortic Valve Aortic valve is bicuspid. No aortic regurgitation is present. There is no aortic valvular stenosis. Mitral Valve The mitral valve is normal in structure. Trace mitral regurgitation. No evidence of mitral valve stenosis. Tricuspid Valve The tricuspid valve is normal in structure. Mild tricuspid regurgitation. estimated pa pressure 50 [place] [address] 2 D/M-MODE ECHOCARDIOGRAM Name: MG WATKINS Room: [address] IN [facility]#: [id number] Admission: 07/06/19 Attend Phys: Valentin Roberts, Discharge: Date of : 42 Date of Service: 07/17/19 1532 Report #: [id number] Pulmonic Valve The pulmonary valve is normal in structure. Mild pulmonic regurgitation. Great Vessels Aortic root is mildly dilated. IVC is normal in size and collapses >50% with inspiration. Pericardium There is no pericardial effusion. <Conclusion> LVEF is 65-70%. Aortic valve is bicuspid. Mild tricuspid regurgitation. estimated pa pressure 50 mm Hg <ELECTRONICALLY SIGNED> By: Jose Cardoza MD, FACC 07/17/19 [phone] Jose Cardoza MD, FACC /INF
--- NOTE | 2019-07-17 15:58 | NUR ---
Possible dc to inpt rehab over the weekend pending clarification of droplet precautions/amount of quarentine.
[2019-07-18] VITALS: BP 163/78
--- NOTE | 2019-07-18 00:47 | NUR ---
PT ALERT ORIENTED TO PERSON, PLACE. PT CONFUSED AT TIMES TO SITUATION. TURN Q 2 HRS. PAIN MEDICATION GIVEN FOR PHILLIPS. TELEMETRY SHOWS SR. WILL CONT TO MONITOR.
[2019-07-18 04:00] VITALS: BP 91/61
[2019-07-18 04:38] LABS: HEMATOCRIT 30.7 % (37.0-47.0); HEMOGLOBIN 10.1 gm/dL (12.0-15.0); MCH 30.4 pg (26.0-34.0); MCHC 32.8 g/dL (28.0-37.0); MCV 92.7 fL (80.0-100.0); MPV 6.7 fl. (7.2-11.1); NUCLEATED RBCS 0 /100WBC; RBC 3.31 mil/uL (4.20-5.00); RDW-CV 16.5 % (10.5-14.5); WBC 7.5 thou/uL (4.0-11.0)
[2019-07-18 04:48] LABS: PLATELET COUNT* 409 thou/uL (150-400)
[2019-07-18 05:02] LABS: CALCIUM 9.8 mg/dL (8.5-10.1); CREATININE 1.1 mg/dL (0.6-1.3); POTASSIUM 4.1 mmol/L (3.5-5.1)
[2019-07-18 06:05] LABS: ABSOLUTE LYMPHOCYTES 0.8 thou/uL (0.8-5.3); ABSOLUTE MONOCYTES 0.8 thou/uL (0.0-1.2); ATYPICAL LYMPHS 1 %; MYELOCYTES 1 %
[2019-07-18 06:08] LABS: PLATELET ESTIMATE INCREASED
--- NOTE | 2019-07-18 06:40 | NUR ---
CONTINUITY OF CARE PROVIDED FOR THIS PT AT APPROX 0300. NO ACUTE CHANGES NOTED. CALL LIGHT WITHIN REACH. HIGH FALL PRECAUTIONS IN PLACE. WILL CONTINUE TO MONITOR PT.
[2019-07-18 08:45] VITALS: BP 151/66
[2019-07-18 12:00] VITALS: BP 153/82
[2019-07-18 17:25] VITALS: BP 177/63
--- NOTE | 2019-07-18 23:57 | NUR ---
PT ALERT MOSTLY ORIENTED. TO PERSON PLACE. BED REST TURN Q 2 HRS. TELEMETRY INITALLY SHOWED SR WITH INTERMITTENT AFIB BEATS. NOW SR WITH PACS. PT PICS AND PULLS AT THINGS. O2 AT 4 LITERS NC. SAME HOME DOSE O2. WCTM
[2019-07-19 00:14] VITALS: BP 156/72
--- NOTE | 2019-07-19 03:41 | NUR ---
REPORT GIVEN TO GRANT STANLEY. NO CHGS.
--- NOTE | 2019-07-19 03:46 | NUR ---
ASSUMED CARE OF PT FROM MARIXA STANLEY. PT AWAKE WATCHING TV, DENIES NEEDS AT PRESENT. O2 4L NC. CONTRERAS DRAINING YELLOW URINE. RSUBCLAVIAN TL SL, AM LABS DRAWN BY PREVIOUS NURSE AND SENT TO LAB. BED ALARM ON FOR SAFETY, CALL LITE IN EASY REACH. TELE SR PAC. WILL CONTINUE TO MONITOR AND PROVIDE CARES NEEDED.REMAINS ON DROPLET PRECAUTIONS.
[2019-07-19 04:12] VITALS: BP 162/69
[2019-07-19 05:08] LABS: ABSOLUTE LYMPHOCYTES 0.6 thou/uL (0.8-5.3); ABSOLUTE MONOCYTES 0.2 thou/uL (0.0-1.2); ABSOLUTE NEUTROPHILS 5.9 thou/uL (1.6-8.1); BASOPHILS 0.2 %; HEMATOCRIT 30.8 % (37.0-47.0); LYMPHOCYTES 8.3 %; MCH 30.2 pg (26.0-34.0); MCHC 32.5 g/dL (28.0-37.0); MCV 92.9 fL (80.0-100.0); MONOCYTES 2.4 %; NUCLEATED RBCS 0 /100WBC; PLATELET COUNT* 352 thou/uL (150-400); POLYS 89.1 %; RBC 3.31 mil/uL (4.20-5.00); RDW-CV 16.6 % (10.5-14.5); WBC 6.6 thou/uL (4.0-11.0)
[2019-07-19 05:21] LABS: CALCIUM 8.9 mg/dL (8.5-10.1); CREATININE 1.1 mg/dL (0.6-1.3)
--- NOTE | 2019-07-19 05:42 | NUR ---
PT AWAKE WATCHING TV SINCE I ASSUMED CARE. AO TO SELF AND SITUATION. O2 4L NC. CONTRERAS DRAINING YELLOW URINE. STAT LOCK. R SUBCL TL SL. AM LABS. INCONTINENT BM THIS MORNING, NATO CARE GIVEN AND BARRIER CREAM APPLIED. TAKES PILLS WHOLE IN PUDDING. BED ALARM ON FOR SAFETY. TELE SR PAC. PT TURNED AND REPOSITIONED Q2 HOURS AND PRN FOR SKIN CARE AND COMFORT. REMAINS ON DROPLET ISOLATION-DR MUST CLEAR ISOLATION REMOVAL BEFORE PT CAN TRANSFER TO REHAB. BRUISING TO LAR. CALL LITE IN EASY REACH.
[2019-07-19 08:30] VITALS: BP 160/70
[2019-07-19 13:03] VITALS: BP 175/88
[2019-07-19 15:57] VITALS: BP 182/85
--- NOTE | 2019-07-19 16:09 | NUR ---
ASSUMED CARE OF PT APPROX 0730. REASSESSMENT COMPLETED CHARTED. MEDICATIONS GIVEN CHARTED. PT REFUSED TO EAT BREAKFAST THIS AM AND DIDNT WANT ANYTHING ELSE TO EAT. PT WAS STATING THEY WANTED TO GO HOME, IT WAS EXPLAINED TO THE PT THEY NEEDED FUTHER CARE STILL BECAUSE THEY ARE NOT STRONG ENOUGH TO GET OUT OF BED ON THEIR OWN. PT NEEDS REENFORCEMENT. PT GOT WASHED UP BEFORE LUNCH CAME. PT ATE LUNCH THIS AFTERNOON. SAFTEY PRECAUTIONS UTILIZED, HOURLY ROUNDING. BED IN LOW POSITION AND CALL LIGHT WITHIN REACH.
[2019-07-19 20:00] VITALS: BP 148/77
[2019-07-20] VITALS: BP 154/88
[2019-07-20 03:30] VITALS: BP 150/94
--- NOTE | 2019-07-20 06:16 | NUR ---
ASSUMED PT CARE AT 1915. NURSING ASSESSMENT COMPLETED AT START OF SHIFT. PT VOICED NO CONCERNS THIS SHIFT. SR WITH PACS ON BOARD LINER OPERATOR. HOURLY ROUNDING COMPLETED. PT DENIES PAIN THIS SHIFT. Q2H REPOSITIONING COMPLETED. HIGH FALL PRECAUTIONS IN PLACE. CALL LIGHT WITHIN REACH.
[2019-07-20 08:00] VITALS: BP 177/76
[2019-07-20] MEDS ORDERED: CARDIZEM CD300 MG PO (10:56)
[2019-07-20] MEDS ORDERED: SOTALOL80 MG PO (11:00)
[2019-07-20] MEDS ORDERED: PROTONIX40 M2 PO (11:01)
[2019-07-20] MEDS ORDERED: PREDNISONE 10 M10 MG PO (11:04)
[2019-07-20] MEDS ORDERED: ASA81BEC PO (11:05)
[2019-07-20] MEDS ORDERED: CEFUROXIME500 MG PO (11:09)
[2019-07-20] MEDS ORDERED: IPRAT-ALBUT 0.5-3 ML INH (11:11)
[2019-07-20 11:16] VITALS: BP 177/76
--- NOTE | 2019-07-20 11:42 | NUR ---
Pt discharging to acute rehab today, aware and in agreement with POC. Plan is to return home with post dc. Nurse to fax dc orders. Pt will admit to 320.
[2019-07-20 12:27] VITALS: BP 158/94
--- NOTE | 2019-07-20 13:54 | NUR ---
ASSUMED PT CARE REPORT RECEIVED FROM NURSE. PT IS AOX4. ON 4 L NC. TRACING SINUS RYTHM WITH PACS ON THE EAR PULL MACHINE OPERATOR. RIGHT JUGUALR CENTRAL LINE IS PATENT. SKIN IS INTACT. CONTRERAS IN PLACE. PT TO BE TRANSFERED TO REHAB FLOOR AT 1600 ORDERED. CALL LIGHT WITHIN REACH. WILL CONTINUE TO MONITOR.
[2019-07-20 17:07] VITALS: BP 175/80
--- NOTE | 2019-07-20 18:15 | NUR ---
REPROT GIVEN TO [facility] NURSE ALEKSANDER. CENTRALIV LINE REMOVED ORDERED. CONTRERAS CATHETER REMOVED. PT WAS CLEANED AFTER HAVING INCONTINENCE OF BLADDER AND BOWEL IN BED. PT TRANSPORTED TO REHAB ROOM 320 VIA BED WITH O2 SUPPLEMENT 4 L NC ATTACHED. BELONGING BROUGHT ALONG. IV MONITOR RETRIEVED.
--- NOTE | 2019-07-21 12:00 | CON ---
[address] [address] CONSULTATION Name: MG WATKINS Room: [address] IN M.R.#: [id number] Admission: 07/06/19 Attend Phys: Valentin Roberts MD Discharge: 07/20/19 Date of : 42 Report #: [id number] THIS REPORT FOR: //name// cc: LM KIRK NP, RUTENDO NP ~ THIS REPORT FOR: //name// CC: Valentin Kirk NP DATE OF SERVICE: 07/07/2019 GI CONSULTATION REFERRING PHYSICIAN: Valentin Roberts MD REASON FOR CONSULTATION: Anemia. IMPRESSION: 1. Acute anemia of uncertain etiology with possible history of melena (per ) -- rule out gastrointestinal blood loss. 2. Respiratory failure, requiring mechanical ventilation. 3. Chronic obstructive pulmonary disease, which is oxygen dependent. 4. Chronic atrial fibrillation requiring chronic anticoagulation. 5. Chronic kidney disease, stage 3. 6. History of remote partial colectomy with temporary colostomy followed by takedown of the same with last colonoscopy being performed in 2008 only revealed hemorrhoidal disease by my partner. RECOMMENDATIONS: 1. We will proceed with upper endoscopy today. I will contact the patient's by phone this morning and he is agreeable for us to proceed. 2. Further recommendation will made thereafter. HISTORY: The patient is a 79-year-old white female who was found Dictation Ends Here. <ELECTRONICALLY SIGNED> By: Marciano Juan DO 07/21/19 1200 0623 [id number] Juan DO /nt
--- NOTE | 2019-07-21 12:00 | CON ---
[address] [address] CONSULTATION Name: MG WATKINS Room: [address] IN M.R.#: [id number] Admission: 07/06/19 Attend Phys: Suzette Roberts MD Discharge: 07/20/19 Date of : 42 Report #: [id number] THIS REPORT FOR: //name// cc: LM KIRK NP, RUTENDO NP ~ THIS REPORT FOR: //name// CC: SUZETTE KIRK DATE OF SERVICE: 07/07/2019 REFERRING PHYSICIAN: Suzette Roberts MD REASON FOR CONSULTATION: Anemia. IMPRESSION: 1. Acute anemia of uncertain etiology with possible history of melena (per ). 2. Respiratory failure, requiring mechanical ventilation. 3. Chronic obstructive pulmonary disease, which is oxygen dependent. 4. Chronic atrial fibrillation, requiring chronic anticoagulation. 5. Chronic kidney disease, stage 3. 6. History of remote partial colectomy with temporary colostomy followed by takedown of the same in the remote past for possible diverticular disease. RECOMMENDATIONS: 1. We will proceed with upper endoscopy today. I have contacted the patient's by phone this morning and he is agreeable for us to proceed. 2. Further recommendation will be made thereafter. HISTORY: The patient is a 79-year-old white female who was found down at home and was unresponsive, was struggling to breathe. She had been ____ room at 3:00 in the morning and is normally on 4 liters of oxygen at home, but because of issues related to the same, she was intubated when she came to the hospital. We do not know much of her other medical history. I contacted the patient's by phone. I asked him "Do you think anything going on with her from GI standpoint, and he thought that maybe she had had some dark stools, but he was unsure whether that was the case or not. She has no prior history of any problems related to her upper or lower GI tract. She does not recall if she ever had any previous studies of the same. She was seen through the Emergency Room and intubated and is not currently on the ventilator. ALLERGIES[place] [address] CONSULTATION Name: MG WATKINS Room: [address] IN [facility]#: [id number] Admission: 07/06/19 Attend Phys: Suzette Roberts MD Discharge: 07/20/19 Date of : 42 Report #: [id number] MEDICATIONS: That we know of are atenolol and Tricor. Rest of her family history is not known very well. PAST MEDICAL HISTORY: Previous remote hysterectomy. She has had a ruptured colon back in 70s with colostomy, which was closed later. She has hyperlipidemia, hypertension. She had part of her right upper lobe removed in 1997 for presumably cancer. SOCIAL HISTORY: Not taken. FAMILY HISTORY: Not taken. PHYSICAL EXAMINATION: GENERAL: Revealed a 79-year-old white female who is currently on ventilator, cannot answer any questions. CARDIOPULMONARY: Revealed a regular rate and rhythm. LUNGS: Clear with diminished breath sounds. ABDOMEN: Soft and not tender. No rebound or guarding noted. LABORATORY DATA: From admission revealed a white count of 7.2, hemoglobin 5.8, platelet count 321,000, MCV is 96.7 and RDW is 17.2. Differential is normal. Sodium 135, potassium 5.5, chloride 98, bicarbonate is 25, BUN is 28, creatinine was 2.0, GFR was 24. Total bilirubin 0.5, alkaline phosphatase 64, AST 189, ALT 151. Albumin was 3.1. In reviewing the patient's records from her previous hospital stay, there is also history that she has had chronic atrial fibrillation, chronic kidney disease. She has had a bladder sling as well. At that time, her hemoglobin on the was 9.5 and her GFR was 30.4. DISCUSSION: At the present time, the patient has acute anemia of uncertain significance. We will proceed with upper endoscopy today and make further recommendations thereafter. <ELECTRONICALLY SIGNED> By: Marciano Juan DO 07/21/19 1200 1220 [id number] Juan DO /nt
== END 2019-07-20 16:58 | DRG 207 ==
LOC: M.ERS 09:40 → M.ICU 12:41 → M.TBA-ER 12:41 → M.ICU 13:44 → M.2W 07-17 11:48
PROVIDERS: Emergency Medicine; Internal Medicine; Internal Medicine Gastroenterology; Internal Medicine Pulmonary Disease; ADMIT Internal Medicine
DX: J69.0 Pneumonitis due to inhalation of food and vomit (principal); K57.91 Diverticulosis of intestine, part unspecified, without perforation or abscess with bleeding; J96.22 Acute and chronic respiratory failure with hypercapnia; J96.21 Acute and chronic respiratory failure with hypoxia; N17.0 Acute kidney failure with tubular necrosis; I48.20 Chronic atrial fibrillation, unspecified; G93.40 Encephalopathy, unspecified; I13.0 Hypertensive heart and chronic kidney disease with heart failure and stage 1 through stage 4 chronic kidney disease, or unspecified chronic kidney disease; D62 Acute posthemorrhagic anemia; N39.0 Urinary tract infection, site not specified; E78.5 Hyperlipidemia, unspecified; D64.9 Anemia, unspecified; J44.9 Chronic obstructive pulmonary disease, unspecified; N18.3 Chronic kidney disease, stage 3 (moderate); E66.9 Obesity, unspecified; I50.9 Heart failure, unspecified; K64.4 Residual hemorrhoidal skin tags; K64.8 Other hemorrhoids; Z79.899 Other long term (current) drug therapy; Z90.710 Acquired absence of both cervix and uterus; Z93.3 Colostomy status; Z82.49 Family history of ischemic heart disease and other diseases of the circulatory system; Z79.01 Long term (current) use of anticoagulants; Z90.49 Acquired absence of other specified parts of digestive tract; Z68.34 Body mass index [BMI] 34.0-34.9, adult

== ENCOUNTER 2019-07-20 13:07 | Inpatient (IN) | payer MEDICARE ==
[~2019-07-20] VITALS: Ht 175.3 cm; Wt 84.4 kg
[~2019-07-20 13:07] MED LIST changes: +ASA81BEC PO; +CARDIZEM CD300 MG PO; +CEFUROXIME500 MG PO; +IPRAT-ALBUT 0.5-3 ML INH; +PREDNISONE 10 M10 MG PO; +PROTONIX40 M2 PO; +SOTALOL80 MG PO
[2019-07-20 17:20] VITALS: BP 129/88
[2019-07-20 20:00] VITALS: BP 154/62
[2019-07-21 04:52] LABS: HEMATOCRIT 34.6 % (37.0-47.0); HEMOGLOBIN 11.2 gm/dL (12.0-15.0); MCH 29.9 pg (26.0-34.0); MCHC 32.4 g/dL (28.0-37.0); MCV 92.2 fL (80.0-100.0); MPV 7.2 fl. (7.2-11.1); RBC 3.75 mil/uL (4.20-5.00); RDW-CV 16.7 % (10.5-14.5); WBC 8.6 thou/uL (4.0-11.0)
[2019-07-21 05:24] LABS: CALCIUM 9.5 mg/dL (8.5-10.1); CREATININE 0.9 mg/dL (0.6-1.3); POTASSIUM 3.3 mmol/L (3.5-5.1)
[2019-07-21 07:30] VITALS: BP 191/81
[2019-07-21 10:39] VITALS: BP 155/81
[2019-07-21 19:00] VITALS: BP 118/72
[2019-07-22 08:32] VITALS: BP 177/88
[2019-07-22 20:00] VITALS: BP 151/91
[2019-07-23 08:00] VITALS: BP 148/88
[2019-07-23 20:00] VITALS: BP 140/81
[2019-07-24 08:00] VITALS: BP 158/83
[2019-07-24 12:55] LABS: HEMATOCRIT 38.1 % (37.0-47.0); HEMOGLOBIN 12.3 gm/dL (12.0-15.0); MCH 30.3 pg (26.0-34.0); MCHC 32.4 g/dL (28.0-37.0); MCV 93.5 fL (80.0-100.0); MPV 8.5 fl. (7.2-11.1); RBC 4.07 mil/uL (4.20-5.00); RDW-CV 17.5 % (10.5-14.5); WBC 9.4 thou/uL (4.0-11.0)
[2019-07-24 13:07] LABS: ALBUMIN 3.1 g/dL (3.4-5.0); CALCIUM 10.1 mg/dL (8.5-10.1); CREATININE 1.2 mg/dL (0.6-1.3); POTASSIUM 5.4 mmol/L (3.5-5.1); TOTAL BILIRUBIN 0.7 mg/dL (<0.1-1.0); TOTAL PROTEIN 6.4 g/dL (6.4-8.2)
[2019-07-24 20:00] VITALS: BP 151/70
[2019-07-25 08:03] VITALS: BP 139/75
[2019-07-25 20:00] VITALS: BP 137/65
[2019-07-26 05:08] LABS: HEMATOCRIT 35.4 % (37.0-47.0); HEMOGLOBIN 11.6 gm/dL (12.0-15.0); MCH 30.8 pg (26.0-34.0); MCHC 32.9 g/dL (28.0-37.0); MCV 93.8 fL (80.0-100.0); MPV 8.8 fl. (7.2-11.1); RBC 3.77 mil/uL (4.20-5.00); RDW-CV 17.8 % (10.5-14.5); WBC 7.1 thou/uL (4.0-11.0)
[2019-07-26 05:28] LABS: ALBUMIN 2.9 g/dL (3.4-5.0); CALCIUM 9.3 mg/dL (8.5-10.1); CREATININE 1.6 mg/dL (0.6-1.3); MAGNESIUM 1.7 mg/dL (1.8-2.4); PHOSPHORUS* 3.7 mg/dL (2.5-4.9); POTASSIUM 3.9 mmol/L (3.5-5.1)
[2019-07-26 07:00] VITALS: BP 142/77
[2019-07-26 19:30] VITALS: BP 117/66
[2019-07-27 05:04] LABS: HEMATOCRIT 35.7 % (37.0-47.0); HEMOGLOBIN 11.8 gm/dL (12.0-15.0); MCH 30.7 pg (26.0-34.0); MCHC 33.2 g/dL (28.0-37.0); MCV 92.5 fL (80.0-100.0); MPV 8.8 fl. (7.2-11.1); RBC 3.86 mil/uL (4.20-5.00); RDW-CV 17.2 % (10.5-14.5); WBC 7.9 thou/uL (4.0-11.0)
[2019-07-27 05:16] LABS: CALCIUM 9.6 mg/dL (8.5-10.1); CREATININE 1.8 mg/dL (0.6-1.3); MAGNESIUM 1.9 mg/dL (1.8-2.4); POTASSIUM 3.9 mmol/L (3.5-5.1)
[2019-07-27 06:59] VITALS: BP 115/64
[2019-07-27 08:03] LABS: URINE BILIRUBIN NEGATIVE (Negative); URINE BLOOD NEGATIVE (Negative); URINE CLARITY CLEAR; URINE COLOR YELLOW; URINE GLUCOSE-RANDOM NEGATIVE (Negative); URINE KETONES NEGATIVE (Negative); URINE LEUKOCYTES-REFLEX NEGATIVE (Negative); URINE NITRITE-REFLEX NEGATIVE (Negative); URINE PROTEIN NEGATIVE (Negative); URINE SPECIFIC GRAVITY 1.025 (1.005-1.030); URINE UROBILINOGEN 0.2 E.U./dl (0.2-1.0)
[2019-07-27 20:30] VITALS: BP 133/72
[2019-07-28 08:00] VITALS: BP 128/64
[2019-07-28 20:00] VITALS: BP 107/57
[2019-07-29 08:00] VITALS: BP 117/57
[2019-07-29 19:55] VITALS: BP 122/48
[2019-07-30 04:15] VITALS: BP 135/54
[2019-07-30 04:57] LABS: CALCIUM 9.1 mg/dL (8.5-10.1); CREATININE 2.3 mg/dL (0.6-1.3); POTASSIUM 3.7 mmol/L (3.5-5.1)
[2019-07-30 07:49] VITALS: BP 136/63
[2019-07-30 19:30] VITALS: BP 120/56
[2019-07-31 08:00] VITALS: BP 139/74
[2019-07-31 20:00] VITALS: BP 142/76
[2019-08-01 08:00] VITALS: BP 139/75
[2019-08-01 10:59] LABS: CALCIUM 9.5 mg/dL (8.5-10.1); CREATININE 2.1 mg/dL (0.6-1.3); POTASSIUM 4.7 mmol/L (3.5-5.1)
[2019-08-01 20:00] VITALS: BP 114/53
[2019-08-02 08:18] VITALS: BP 125/55
[2019-08-02 20:30] VITALS: BP 120/61
[2019-08-03 07:50] VITALS: BP 150/71
[2019-08-03 20:00] VITALS: BP 121/48
[2019-08-04 06:34] LABS: HEMOGLOBIN 11.3 gm/dL (12.0-15.0); MCH 31.3 pg (26.0-34.0); MCHC 33.1 g/dL (28.0-37.0); MCV 94.6 fL (80.0-100.0); MPV 8.5 fl. (7.2-11.1); NUCLEATED RBCS 0 /100WBC; PLATELET COUNT* 153 thou/uL (150-400); RDW-CV 18.8 % (10.5-14.5)
[2019-08-04 06:49] LABS: ALBUMIN 3.1 g/dL (3.4-5.0); CALCIUM 9.4 mg/dL (8.5-10.1); CREATININE 1.7 mg/dL (0.6-1.3); POTASSIUM 4.8 mmol/L (3.5-5.1); TOTAL BILIRUBIN 0.4 mg/dL (<0.1-1.0)
[2019-08-04 07:07] LABS: ABSOLUTE LYMPHOCYTES 1.4 thou/uL (0.8-5.3); ABSOLUTE MONOCYTES 0.4 thou/uL (0.0-1.2); ABSOLUTE NEUTROPHILS 4.1 thou/uL (1.6-8.1); ANISOCYTOSIS 1+; PLATELET ESTIMATE ADEQUATE; POIKILOCYTOSIS 1+
[2019-08-04 07:39] VITALS: BP 154/68
[2019-08-04 20:25] VITALS: BP 135/60
[2019-08-05 08:00] VITALS: BP 146/77
[2019-08-06 08:00] VITALS: BP 138/70
[2019-08-06 20:00] VITALS: BP 129/60
[2019-08-07 01:14] VITALS: BP 129/60
[2019-08-07 07:39] VITALS: BP 156/76
[2019-08-07 12:37] VITALS: BP 156/78
[2019-08-07 12:40] VITALS: BP 156/78
[2019-08-07 13:02] VITALS: BP 156/78
== END 2019-08-07 13:15 | disposition home health service (06) | DRG 189 ==
LOC: M.REH 13:07
PROVIDERS: Family Medicine; Internal Medicine; ADMIT Physical Medicine & Rehabilitation
DX: J96.01 Acute respiratory failure with hypoxia (principal); N17.0 Acute kidney failure with tubular necrosis; J69.0 Pneumonitis due to inhalation of food and vomit; G93.40 Encephalopathy, unspecified; N39.0 Urinary tract infection, site not specified; K92.2 Gastrointestinal hemorrhage, unspecified; I50.32 Chronic diastolic (congestive) heart failure; D64.9 Anemia, unspecified; I48.91 Unspecified atrial fibrillation; M19.90 Unspecified osteoarthritis, unspecified site; I27.20 Pulmonary hypertension, unspecified; E78.5 Hyperlipidemia, unspecified; I11.0 Hypertensive heart disease with heart failure; Z90.710 Acquired absence of both cervix and uterus; Z93.3 Colostomy status; Z79.899 Other long term (current) drug therapy

== ENCOUNTER 2020-09-27 09:53 | Emergency (ER) | payer MEDICARE ==
[~2020-09-27] VITALS: Ht 160 cm; Wt 74.9 kg
[2020-09-27] MEDS ORDERED: ZANAFLEX4 M1 PO (10:39)
[2020-09-27] MEDS ORDERED: FLEXERIL PO (10:40)
[2020-09-27] MEDS ORDERED: CLONIDINE HCL0.1 MG PO (10:40)
[2020-09-27 10:53] LABS: HEMOGLOBIN 9.6 gm/dL (12.0-15.0); RDW-CV 16.5 % (10.5-14.5)
[2020-09-27 10:54] LABS: MCH 32.1 pg (26.0-34.0); MCHC 29.2 g/dL (28.0-37.0); MCV 110.1 fL (80.0-100.0); MPV 7.7 fl. (7.2-11.1); NUCLEATED RBCS 0 /100WBC; PLATELET COUNT* 239 thou/uL (150-400); WBC 20.8 thou/uL (4.0-11.0)
[2020-09-27 11:03] LABS: CALCIUM 9.5 mg/dL (8.5-10.1); CREATININE 1.6 mg/dL (0.6-1.3)
[2020-09-27 11:07] LABS: ALBUMIN 2.8 g/dL (3.4-5.0); TOTAL BILIRUBIN 0.2 mg/dL (<0.1-1.0); TOTAL PROTEIN 6.7 g/dL (6.4-8.2)
[2020-09-27 11:08] LABS: POTASSIUM 7.5 mmol/L (3.5-5.1)
[2020-09-27 11:26] LABS: ABSOLUTE BASOPHILS 0.2 thou/uL (0.0-0.2); ABSOLUTE EOSINOPHILS 0.2 thou/uL (0.0-0.7); ABSOLUTE LYMPHOCYTES 5.6 thou/uL (0.8-5.3); ABSOLUTE MONOCYTES 0.4 thou/uL (0.0-1.2); ABSOLUTE NEUTROPHILS 14.4 thou/uL (1.6-8.1); METAMYELOCYTES 2 %
[2020-09-27 11:27] LABS: PLATELET ESTIMATE ADEQUATE
[2020-09-27 11:28] LABS: ANISOCYTOSIS 1+; HYPOCHROMASIA 1+; MACROCYTES 1+
[2020-09-27 14:14] VITALS: BP 64/37
--- NOTE | 2020-09-27 15:50 | EKG ---
[place] [address] ELECTROCARDIOGRAM REPORT Name: MG WATKINSAN Room: [facility]#: [id number] Admission: 09/27/20 Attend Phys: Discharge: 09/27/20 Date of : 42 Date of Service: 09/27/20 1058 Report #: [id number] THIS REPORT FOR: //name// [facility] ED Test Date: 2020-09-27 Test Time: 10:58:33 Pat Name: MG WATKINS Department: Room: Gender: F Email Marketing Executive: MATTHEW : 1940 Requested By: Cresencio Valdez Order Number: [id number] MD: Stephane Draper Measurements Intervals [place] Rate: 41 P: UT: QRS: 35 QRSD: 91 T: 23 QT: 427 QTc: 353 Interpretive Statements Junctional bradycardia Baseline wander in lead(s) II,III,aVF Compared to ECG 07/16/2019 13:01:11 Junctional rhythm now present Sinus tachycardia no longer present Early repolarization no longer present Electronically Signed On 09-27-2020 15:50:23 CDT by Stephane Draper [email or web address] <ELECTRONICALLY SIGNED> By: Stephane Draper MD, [facility] 09/27/20 1550 1058 1058 Stephane Draper MD, [facility] /EPI
== END 2020-09-27 11:17 ==
LOC: M.ERS 09:53
PROVIDERS: Family Medicine
DX: I71.1 Thoracic aortic aneurysm, ruptured (principal); Z20.822 Contact with and (suspected) exposure to COVID-19; I46.9 Cardiac arrest, cause unspecified; J44.9 Chronic obstructive pulmonary disease, unspecified; I48.91 Unspecified atrial fibrillation; E78.5 Hyperlipidemia, unspecified; I11.0 Hypertensive heart disease with heart failure; I50.9 Heart failure, unspecified; Z79.899 Other long term (current) drug therapy; Z79.82 Long term (current) use of aspirin